=== PATIENT | male | born 1965 | race Caucasian/White ===

== ENCOUNTER 2016-07-15 14:17 | Inpatient (IN) | payer OTHER ==
[~2016-07-15] VITALS: Ht 167.6 cm; Wt 67.1 kg
[~2016-07-15 14:17] MED LIST: ACTOS45 MG PO; ASPIRIN EC81 MG PO; ATORVASTATIN CA40 MG PO; CITALOPRAM HBR40 MG PO; COREG 12.5MG12.5 MG PO; COREG 3.125M3.125 MG PO; ELAVIL 50 MG TA50 MG PO; ENALAPRIL MALE2.5 MG PO; FLOMAX 0.4 MG0.4 MG PO; FUROSEMIDE20 MG PO; GABAPENTIN800 MG PO; HABITROL 21 MG P1 EA TOP; HUMULIN R100 UNIT/1 SQ; IPRAT-ALBUT 0.5-3 ML INH; ISORDIL TAB 2020 MG PO; KLONOPIN TAB 00.5 MG PO; KLOR-CON M1010 MEQ PO; LASIX20 MG PO; LEVEMIR100 UNIT/1 SQ; LOPRESSOR 50 MG50 MG PO; MAPAP500 M1 PO; NITROGLYCERIN0.4 MG SL; NORVASC10 MG PO; PLAVIX 75 MG TA75 MG PO; PRAVASTATIN SOD20 MG PO; VITAMIN D50000 UNIT PO; ZANTAC 150 MG150 MG PO; ZIPRASIDONE 20 MG PO
[2016-07-15 15:28] LABS: HEMOGLOBIN 13.9 gm/dl (14.0-17.5); RED BLOOD COUNT 4.41 M/UL (4.20-5.50); WHITE BLOOD COUNT 12.3 K/UL (4.5-11.0)
[2016-07-15 15:47] LABS: BUN/CREATININE RATIO 8 (0-10)
[2016-07-15] MEDS ORDERED: VENTOLIN/PROVE0.5 ML INH (22:10)
[2016-07-16 04:34] LABS: HEMOGLOBIN 12.1 gm/dl (14.0-17.5)
[2016-07-16 04:35] LABS: RED BLOOD COUNT 3.88 M/UL (4.20-5.50); WHITE BLOOD COUNT 19.4 K/UL (4.5-11.0)
[2016-07-16 04:49] LABS: BUN/CREATININE RATIO 17 (0-10)
[2016-07-16] MEDS ORDERED: FLOMAX 0.4 MG0.4 MG PO (11:50)
[2016-07-16] MEDS ORDERED: ASPIRIN CHEWABL81 MG PO (11:51)
[2016-07-18 03:37] LABS: HEMOGLOBIN 11.5 gm/dl (14.0-17.5); RED BLOOD COUNT 3.69 M/UL (4.20-5.50); WHITE BLOOD COUNT 13.2 K/UL (4.5-11.0)
[2016-07-18 03:52] LABS: BUN/CREATININE RATIO 13 (0-10)
[2016-07-19 05:33] LABS: HEMOGLOBIN 12.1 gm/dl (14.0-17.5); RED BLOOD COUNT 3.88 M/UL (4.20-5.50); WHITE BLOOD COUNT 10.1 K/UL (4.5-11.0)
[2016-07-19 05:54] LABS: BUN/CREATININE RATIO 18 (0-10)
[2016-07-19] MEDS ORDERED: CORDARONE 200M200 MG PO (16:54)
[2016-11-01] MEDS ORDERED: NEURONTIN 400400 MG PO (00:41)
[2016-11-01] MEDS ORDERED: KLONOPIN TAB 00.5 MG PO (00:42)
[2016-11-01] MEDS ORDERED: LIPITOR TAB 2020 MG PO (00:43)
[2016-11-01] MEDS ORDERED: CORDARONE 200M200 MG PO (00:43)
[2016-11-01] MEDS ORDERED: CELEXA40 MG PO (00:44)
[2016-11-01] MEDS ORDERED: COREG 3.125M3.125 MG PO (00:44)
[2016-11-01] MEDS ORDERED: LASIX20 MG PO (00:45)
[2016-11-01] MEDS ORDERED: PLAVIX 75 MG TA75 MG PO (00:45)
[2016-11-01] MEDS ORDERED: NITROSTAT 0.40.4 MG SL (00:46)
[2016-11-04] MEDS ORDERED: ISOSORBIDE MONO30 MG PO (18:35)
[2016-11-04] MEDS ORDERED: METOPROLOL TART25 MG PO (18:37)
[2016-11-04] MEDS ORDERED: HABITROL 21 MG P1 EA TD (18:39)
[2016-11-04] MEDS ORDERED: LIPITOR TAB 2020 MG PO (18:43)
== END 2016-07-19 18:04 | disposition home or self-care (01) | DRG 208 ==
LOC: ER1 14:17 → PROG CARE 17:19 → ZEROF 17:19 → CCU 21:51 → PROG CARE 07-18 17:50
PROVIDERS: Student in an Organized Health Care Education/Training Program; ADMIT Internal Medicine
PROC: 5A1935Z Respiratory Ventilation, Less than 24 Consecutive Hours (ICD-10-PCS; principal; 2016-07-15)
PROC: 02HV33Z Insertion of Infusion Device into Superior Vena Cava, Percutaneous Approach (ICD-10-PCS; 2016-07-15)
PROC: B548ZZA Ultrasonography of Superior Vena Cava, Guidance (ICD-10-PCS; 2016-07-15)
PROC: 4B02XTZ Measurement of Cardiac Defibrillator, External Approach (ICD-10-PCS; 2016-07-17)
DX: J96.01 Acute respiratory failure with hypoxia (principal); R57.0 Cardiogenic shock; I50.23 Acute on chronic systolic (congestive) heart failure; G93.40 Encephalopathy, unspecified; I47.2 Ventricular tachycardia; N17.9 Acute kidney failure, unspecified; I69.351 Hemiplegia and hemiparesis following cerebral infarction affecting right dominant side; K92.2 Gastrointestinal hemorrhage, unspecified; I25.5 Ischemic cardiomyopathy; I25.10 Atherosclerotic heart disease of native coronary artery without angina pectoris; E78.5 Hyperlipidemia, unspecified; I27.2 Other secondary pulmonary hypertension; D64.9 Anemia, unspecified; K21.9 Gastro-esophageal reflux disease without esophagitis; R68.0 Hypothermia, not associated with low environmental temperature; N40.0 Benign prostatic hyperplasia without lower urinary tract symptoms; G89.4 Chronic pain syndrome; J32.9 Chronic sinusitis, unspecified; R74.8 Abnormal levels of other serum enzymes; G47.00 Insomnia, unspecified; F17.200 Nicotine dependence, unspecified, uncomplicated; F32.9 Major depressive disorder, single episode, unspecified; F41.9 Anxiety disorder, unspecified; I25.2 Old myocardial infarction; Z95.810 Presence of automatic (implantable) cardiac defibrillator; Z95.1 Presence of aortocoronary bypass graft; Z95.5 Presence of coronary angioplasty implant and graft; Z87.898 Personal history of other specified conditions; Z79.02 Long term (current) use of antithrombotics/antiplatelets; Z79.82 Long term (current) use of aspirin; Z79.899 Other long term (current) drug therapy; Z82.49 Family history of ischemic heart disease and other diseases of the circulatory system
CPT/HCPCS: 36415; 36600; 70450; 71010; 71020; 80048; 80053; 80076; 80307; 81001; 82550; 82553; 82803; 83735; 83874; 83880; 84439; 84443; 84484; 85025; 85027; 85610; 85730; 93005; 94002; 94003; 96361; 96374; 96375; 99285; C9113; G0480; J1644; J1650; J2250

== ENCOUNTER 2016-08-17 20:45 | Observation (INO) | payer OTHER ==
[~2016-08-17] VITALS: Ht 167.6 cm; Wt 64.9 kg
[~2016-08-17 20:45] MED LIST changes: +ASPIRIN CHEWABL81 MG PO; +CORDARONE 200M200 MG PO; +VENTOLIN/PROVE0.5 ML INH
[2016-08-17 21:12] LABS: HEMOGLOBIN 14.8 gm/dl (14.0-17.5); RED BLOOD COUNT 4.72 M/UL (4.20-5.50); WHITE BLOOD COUNT 9.7 K/UL (4.5-11.0)
[2016-08-17 21:41] LABS: BUN/CREATININE RATIO 21 (0-10)
[2016-08-18] MEDS ORDERED: CEFUROXIME500 MG PO (12:31)
[2016-11-01] MEDS ORDERED: NEURONTIN 400400 MG PO (00:41)
[2016-11-01] MEDS ORDERED: KLONOPIN TAB 00.5 MG PO (00:42)
[2016-11-01] MEDS ORDERED: CORDARONE 200M200 MG PO (00:43)
[2016-11-01] MEDS ORDERED: LIPITOR TAB 2020 MG PO (00:43)
[2016-11-01] MEDS ORDERED: CELEXA40 MG PO (00:44)
[2016-11-01] MEDS ORDERED: COREG 3.125M3.125 MG PO (00:44)
[2016-11-01] MEDS ORDERED: LASIX20 MG PO (00:45)
[2016-11-01] MEDS ORDERED: PLAVIX 75 MG TA75 MG PO (00:45)
[2016-11-01] MEDS ORDERED: NITROSTAT 0.40.4 MG SL (00:46)
[2016-11-04] MEDS ORDERED: ISOSORBIDE MONO30 MG PO (18:35)
[2016-11-04] MEDS ORDERED: METOPROLOL TART25 MG PO (18:37)
[2016-11-04] MEDS ORDERED: HABITROL 21 MG P1 EA TD (18:39)
[2016-11-04] MEDS ORDERED: LIPITOR TAB 2020 MG PO (18:43)
== END 2016-08-18 15:22 | disposition home or self-care (01) ==
LOC: ER1 20:45 → M/S 22:00 → ZEROF 22:00 → M/S 08-18 00:25
PROVIDERS: Student in an Organized Health Care Education/Training Program; ADMIT Internal Medicine
DX: R07.89 Other chest pain (principal); J20.9 Acute bronchitis, unspecified; J42 Unspecified chronic bronchitis; I25.10 Atherosclerotic heart disease of native coronary artery without angina pectoris; I11.0 Hypertensive heart disease with heart failure; I50.20 Unspecified systolic (congestive) heart failure; E78.5 Hyperlipidemia, unspecified; N40.0 Benign prostatic hyperplasia without lower urinary tract symptoms; F17.210 Nicotine dependence, cigarettes, uncomplicated; Z86.73 Personal history of transient ischemic attack (TIA), and cerebral infarction without residual deficits; Z79.02 Long term (current) use of antithrombotics/antiplatelets; Z79.82 Long term (current) use of aspirin; Z79.899 Other long term (current) drug therapy; Z95.810 Presence of automatic (implantable) cardiac defibrillator
CPT/HCPCS: 36415; 71010; 80053; 82550; 82553; 83874; 83880; 84484; 85025; 85610; 85730; 96374; 96375; 99285; G0378; J2270; J2405

== ENCOUNTER 2016-08-28 22:44 | Emergency (ER) | payer OTHER ==
[~2016-08-28 22:44] MED LIST changes: +CEFUROXIME500 MG PO
[2016-08-28 23:34] LABS: HEMOGLOBIN 12.4 gm/dl (14.0-17.5); RED BLOOD COUNT 3.97 M/UL (4.20-5.50); WHITE BLOOD COUNT 7.5 K/UL (4.5-11.0)
[2016-08-28 23:57] LABS: BUN/CREATININE RATIO 15 (0-10)
[2016-11-01] MEDS ORDERED: NEURONTIN 400400 MG PO (00:41)
[2016-11-01] MEDS ORDERED: KLONOPIN TAB 00.5 MG PO (00:42)
[2016-11-01] MEDS ORDERED: LIPITOR TAB 2020 MG PO (00:43)
[2016-11-01] MEDS ORDERED: CORDARONE 200M200 MG PO (00:43)
[2016-11-01] MEDS ORDERED: CELEXA40 MG PO (00:44)
[2016-11-01] MEDS ORDERED: COREG 3.125M3.125 MG PO (00:44)
[2016-11-01] MEDS ORDERED: LASIX20 MG PO (00:45)
[2016-11-01] MEDS ORDERED: PLAVIX 75 MG TA75 MG PO (00:45)
[2016-11-01] MEDS ORDERED: NITROSTAT 0.40.4 MG SL (00:46)
[2016-11-04] MEDS ORDERED: ISOSORBIDE MONO30 MG PO (18:35)
[2016-11-04] MEDS ORDERED: METOPROLOL TART25 MG PO (18:37)
[2016-11-04] MEDS ORDERED: HABITROL 21 MG P1 EA TD (18:39)
[2016-11-04] MEDS ORDERED: LIPITOR TAB 2020 MG PO (18:43)
== END 2016-08-29 05:10 | disposition home or self-care (01) ==
LOC: ER1 22:44
PROVIDERS: Student in an Organized Health Care Education/Training Program
DX: I25.810 Atherosclerosis of coronary artery bypass graft(s) without angina pectoris (principal); I25.5 Ischemic cardiomyopathy; I95.9 Hypotension, unspecified; I25.2 Old myocardial infarction; I11.0 Hypertensive heart disease with heart failure; I50.20 Unspecified systolic (congestive) heart failure; F17.210 Nicotine dependence, cigarettes, uncomplicated; Z95.1 Presence of aortocoronary bypass graft; Z95.810 Presence of automatic (implantable) cardiac defibrillator; Z79.82 Long term (current) use of aspirin; Z79.02 Long term (current) use of antithrombotics/antiplatelets; Z79.899 Other long term (current) drug therapy
CPT/HCPCS: 36415; 71010; 80053; 81001; 82550; 82553; 83874; 83880; 84484; 85025; 87086; 93005; 96360; 99284